=== PATIENT | female | born 1985 | race Caucasian/White ===

== ENCOUNTER 2018-09-02 13:17 | Inpatient (IN) | payer MEDICAID ==
[~2018-09-02] VITALS: Ht 157.5 cm; Wt 82.2 kg
[~2018-09-02 13:17] MED LIST: NORG1TAB26 PO
[2018-09-02] MEDS ORDERED: OXYTOCIN 30U/ 0.9% NaCL 500ML 500 ML IV ONE (22:24)
[2018-09-02] MEDS ORDERED: OXYTOCIN 30U/ 0.9% NaCL 500ML 500 ML IV PRN (22:24)
[2018-09-02] MEDS ORDERED: D5%-LACTATED RINGERS 1,000 ML IV SCH (22:24)
[2018-09-02] MEDS ORDERED: FENTANYL PF 100 MCG/2ML IV PRN (22:30)
[2018-09-02] MEDS ORDERED: TERBUTALINE 1 MG/ML, 1ML IVPush PRN (22:30)
[2018-09-02] MEDS ORDERED: MISOPROSTOL 25 MCG TABLET VG PRN (22:30)
[2018-09-02] MEDS ORDERED: FENTANYL PF 100 MCG/2ML IVPush PRN (22:30)
[2018-09-02] MEDS ORDERED: ONDANSETRON 2MG/ML, 2ML IVPush PRN (22:30)
[2018-09-02] MEDS: LACTATED RINGERS 1,000 ML IV SCH (22:45)
[2018-09-02] MEDS ORDERED: NEWBORN KIT ONE (22:49)
[2018-09-02] MEDS ORDERED: MISOPROSTOL 25 MCG TABLET ONE (22:50)
[2018-09-02] MEDS ORDERED: LIDOCAINE/PF 1%, 30ML ONE (22:50)
[2018-09-02] MEDS ORDERED: OXYTOCIN 30U/ 0.9% NaCL 500ML 500 ML ONE (22:50)
[2018-09-02 22:56] LABS: BASOPHILS # (AUTO) 0.04 x10^3/uL (0-0.1); BASOPHILS % (AUTO) 0 % (0-1); EOSINOPHILS # (AUTO) 0.12 x10^3/uL (0-0.4); EOSINOPHILS % (AUTO) 1 % (1-7); LYMPHOCYTES # (AUTO) 2.61 x10^3/uL (1-3.4); LYMPHOCYTES % (AUTO) 24 % (22-44); MD NO; MEAN CORPUSCULAR HEMOGLOBIN 31.6 pg (27.0-34.8); MEAN CORPUSCULAR HGB CONC 34.5 g/dL (32.4-35.8); MEAN CORPUSCULAR VOLUME 91.6 fL (80-100); MEAN PLATELET VOLUME 7.8 fL (7.4-10.4); MONOCYTES # (AUTO) 0.75 x10^3/uL (0.2-0.8); MONOCYTES % (AUTO) 7 % (2-9); NEUTROPHILS # (AUTO) 7.47 x10^3/uL (1.8-6.8); NEUTROPHILS % (AUTO) 68 % (42-75); PLATELET COUNT 324 x10^3/uL (130-400); RED BLOOD COUNT 4.13 x10^6/uL (3.82-5.3); RED CELL DISTRIBUTION WIDTH 13.2 % (9.6-15.2)
[2018-09-02 23:28] LABS: AMPHETAMINE SCREEN, URINE Negative (Negative); BARBITURATE SCREEN, URINE Negative (Negative); BENZODIAZEPINE SCREEN, URINE Negative (Negative); CANNABINOID SCREEN, URINE Negative (Negative); COCAINE SCREEN, URINE Negative (Negative); METHADONE SCREEN, URINE Negative (Negative); OPIATE SCREEN, URINE Negative (Negative)
[2018-09-03] MEDS: LACTATED RINGERS 1,000 ML IV SCH (04:31)
[2018-09-03] MEDS ORDERED: FENTANYL PF 100 MCG/2ML ONE (08:19)
[2018-09-03] MEDS ORDERED: FENTANYL/BUPIV./NS/PF 250 ML EPIDCONT SCH (08:42)
[2018-09-03] MEDS ORDERED: LACTATED RINGERS 1,000 ML IV SCH (08:42)
[2018-09-03] MEDS ORDERED: BUPIVACAINE/PF 0.5% ONE (08:47)
[2018-09-03] MEDS ORDERED: FENTANYL/BUPIV./NS/PF 250 ML EPIDCONT ONE (08:49)
[2018-09-03] MEDS ORDERED: NALOXONE 0.4 MG/ML, 1ML IVPush PRN (09:00)
[2018-09-03] MEDS ORDERED: EPHEDRINE 50 MG/ML, 1ML IVPush PRN (09:00)
[2018-09-03] MEDS ORDERED: LACTATED RINGERS 1,000 ML IVBOLUS PRN (09:00)
[2018-09-03] MEDS ORDERED: ONDANSETRON 2MG/ML, 2ML ONE (09:46)
[2018-09-03] MEDS ORDERED: ACETAMINOPHEN 325 MG TABLET ONE (18:23)
[2018-09-03] MEDS ORDERED: ACETAMINOPHEN 325 MG TABLET PO PRN ×2 (18:30→19:30)
[2018-09-03] MEDS ORDERED: OXYTOCIN 30U/ 0.9% NaCL 500ML 500 ML ONE (19:21)
[2018-09-03] MEDS: OXYTOCIN 30U/ 0.9% NaCL 500ML 500 ML IV SCH (19:28)
[2018-09-03] MEDS ORDERED: CARBOPROST TROMETHAMINE 250 MCG/ML, 1ML IM PRN (19:30)
[2018-09-03] MEDS ORDERED: OXYcodone IR 5MG TABLET PO PRN (19:30)
[2018-09-03] MEDS ORDERED: OXYcodone/APAP 5/325MG TABLET PO PRN (19:30)
[2018-09-03] MEDS ORDERED: MISOPROSTOL 200 MCG TABLET PR PRN (19:30)
[2018-09-03] MEDS ORDERED: METHYLERGONOVINE 0.2 MG/ML IM PRN (19:30)
[2018-09-03 20:08] VITALS: BP 116/69
[2018-09-03] MEDS ORDERED: IBUPROFEN 600 MG TABLET ONE (21:19)
[2018-09-03] MEDS: IBUPROFEN 600 MG TABLET PO PRN (21:20)
[2018-09-03 21:50] VITALS: BP 112/76
[2018-09-04 01:30] VITALS: BP 112/72
[2018-09-04 04:10] VITALS: BP 114/77
[2018-09-04] MEDS: OXYTOCIN 30U/ 0.9% NaCL 500ML 500 ML IV SCH ×2 (05:15→20:58)
[2018-09-04 05:26] LABS: BASOPHILS # (AUTO) 0.03 x10^3/uL (0-0.1); BASOPHILS % (AUTO) 0 % (0-1); EOSINOPHILS # (AUTO) 0.19 x10^3/uL (0-0.4); EOSINOPHILS % (AUTO) 1 % (1-7); LYMPHOCYTES # (AUTO) 2.49 x10^3/uL (1-3.4); LYMPHOCYTES % (AUTO) 15 % (22-44); MD NO; MEAN CORPUSCULAR HEMOGLOBIN 31.6 pg (27.0-34.8); MEAN CORPUSCULAR HGB CONC 34.3 g/dL (32.4-35.8); MEAN CORPUSCULAR VOLUME 92.1 fL (80-100); MEAN PLATELET VOLUME 7.6 fL (7.4-10.4); MONOCYTES # (AUTO) 0.88 x10^3/uL (0.2-0.8); MONOCYTES % (AUTO) 5 % (2-9); NEUTROPHILS % (AUTO) 79 % (42-75); PLATELET COUNT 271 x10^3/uL (130-400); RED CELL DISTRIBUTION WIDTH 13.2 % (9.6-15.2)
[2018-09-04] MEDS: IBUPROFEN 600 MG TABLET PO PRN ×3 (06:47→20:57)
[2018-09-04 08:00] VITALS: BP 128/83
[2018-09-04] MEDS ORDERED: PRENATAL VIT/IRON/FA 1 EACH TABLET PO SCH (09:00)
[2018-09-04 12:10] VITALS: BP 125/80
[2018-09-04 16:20] VITALS: BP 119/72
[2018-09-04 20:00] VITALS: BP 127/84
[2018-09-05] MEDS: OXYTOCIN 30U/ 0.9% NaCL 500ML 500 ML IV SCH ×2 (01:15→11:15)
[2018-09-05] MEDS: IBUPROFEN 600 MG TABLET PO PRN ×2 (05:00→14:40)
[2018-09-05 07:50] VITALS: BP 129/86
[2018-09-05] MEDS ORDERED: IBUP-1222 PO (11:45)
== END 2018-09-05 16:13 | disposition home or self-care (01) | DRG 807 ==
LOC: LDIP 22:05 → 2NW 09-03 21:28
PROVIDERS: ADMIT Student in an Organized Health Care Education/Training Program; ATTEND Student in an Organized Health Care Education/Training Program
PROC: 10E0XZZ Delivery of Products of Conception, External Approach (ICD-10-PCS; principal; 2018-09-03)
PROC: 10907ZC Drainage of Amniotic Fluid, Therapeutic from Products of Conception, Via Natural or Artificial Opening (ICD-10-PCS; 2018-09-03)
PROC: 0HQ9XZZ Repair Perineum Skin, External Approach (ICD-10-PCS; 2018-09-03)
PROC: 3E0R3BZ Introduction of Anesthetic Agent into Spinal Canal, Percutaneous Approach (ICD-10-PCS; 2018-09-03)
PROC: 00HU33Z Insertion of Infusion Device into Spinal Canal, Percutaneous Approach (ICD-10-PCS; 2018-09-03)
DX: O70.0 First degree perineal laceration during delivery (principal); Z37.0 Single live birth; Z3A.40 40 weeks gestation of pregnancy; Z82.3 Family history of stroke; Z82.49 Family history of ischemic heart disease and other diseases of the circulatory system; Z83.3 Family history of diabetes mellitus; M41.9 Scoliosis, unspecified; M79.7 Fibromyalgia
CPT/HCPCS: 36415; J7121; 80307; 85025; 86850; 86900; G0378; J2405; J3010; J2590; J7120

== ENCOUNTER 2020-09-06 16:35 | Emergency (ER) | payer MEDICAID ==
[~2020-09-06] VITALS: Ht 157.5 cm; Wt 79.9 kg
[~2020-09-06 16:35] MED LIST changes: +IBUP-1222 PO; -NORG1TAB26 PO; +NORG1TAB77 PO
--- NOTE | 2020-09-06 16:52 | NUR ---
PT IS A 34 YR OLD FEMALE HERE FOR WHAT SHE DESCRIBES IS A EPISODE OF HAVING HER BODY SEIZE UP WHILE HAVING A BOWEL MOVEMENT. PT WAS AWARE OF EVENT AND ABLE TO RECAL. SHE DESCRIBES HER HANDS SPASMING, GLOBAL WEAKNESS, AND INABILITY TO MOVE. SYMPTOMS HAVE SINCE RESOLVED.
--- NOTE | 2020-09-06 17:20 | NUR ---
BREAK RN FOR PRIMARY RN JOE. PT RESTING IN POSITION OF COMFORT. AWAITING EVAL BY ERP. SPOUSE AT BEDSIDE. A&OX4. VSS. CONT PULSE OX, BP MONITORS APPLIED. DENIES ANY PAIN "A LITTLE DISCOMFORT IN MY STOMACH BUT WOULDN'T CALL IT PAIN." CALL LIGHT IN REACH. FALL PRECAUTIONS IN PLACE. SIDE RAILS UPX2.
--- NOTE | 2020-09-06 17:23 | NUR ---
BREAK RN. DR. DELEON AT BEDSIDE FOR EVALUATION, AWAITING ORDERS.
--- NOTE | 2020-09-06 17:41 | NUR ---
BEDSIDE REPORT AND TRANSFER OF CARE BACK TO PRIMARY RN JOE AT THIS TIME.
[2020-09-06 18:30] LABS: BASOPHILS % (AUTO) 0 % (0-1); EOSINOPHILS % (AUTO) 0 % (1-7); LYMPHOCYTES % (AUTO) 12 % (22-44); MEAN CORPUSCULAR HEMOGLOBIN 31.5 pg (27.0-34.8); MEAN CORPUSCULAR HGB CONC 33.6 g/dL (32.4-35.8); MEAN PLATELET VOLUME 7.1 fL (7.4-10.4); MONOCYTES % (AUTO) 5 % (2-9); NEUTROPHILS % (AUTO) 82 % (42-75); PLATELET COUNT 377 x10^3/uL (130-400); RED BLOOD COUNT 4.71 x10^6/uL (3.82-5.3); RED CELL DISTRIBUTION WIDTH 12.9 % (9.6-15.2)
[2020-09-06 18:35] LABS: MICROSCOPIC NOT IND
[2020-09-06 18:37] LABS: ALBUMIN 3.8 g/dL (3.4-5.0); ANION GAP 7 mmol/L (5-15); CALCIUM 8.7 mg/dL (8.5-10.1); CHLORIDE 107 mmol/L (98-107)
[2020-09-06 18:38] LABS: MD NO
[2020-09-06 18:43] LABS: ALANINE AMINOTRANSFERASE 19 U/L (12-78); ALKALINE PHOSPHATASE 45 U/L (45-117); BILIRUBIN,TOTAL 0.3 mg/dL (0.2-1.0); CREATININE 0.79 mg/dL (0.55-1.02); TOTAL PROTEIN 7.1 g/dL (6.4-8.2)
[2020-09-06 18:44] VITALS: BP 106/66
--- NOTE | 2020-09-06 19:06 | NUR ---
CALLED X RAY WITH PREGNACY STATUS. X RAY TO BE PERFORMED.
== END 2020-09-06 20:10 | disposition home or self-care (01) ==
LOC: ED 19:30
DX: R10.84 Generalized abdominal pain (principal)
CPT/HCPCS: 36415; 74021; 80053; 81003; 83690; 84703; 85025; 99284